=== PATIENT | male | born 1965 | race Caucasian/White ===

== ENCOUNTER 2016-08-25 18:44 | Emergency (ER) | payer OTHER ==
[~2016-08-25] VITALS: Ht 172.7 cm; Wt 81.6 kg
[~2016-08-25 18:44] MED LIST: ZOLOFT50 M1
--- NOTE | 2016-08-25 18:47 | NUR ---
PT PLACED IN BED 6 BY EMS.
[2016-08-25 18:48] VITALS: BP 163/111
--- NOTE | 2016-08-25 18:50 | NUR ---
PATIENT BIBA FOR EVALUATION OF LEFT WRIST PAIN . [facility] [employer] [facility] STATES PT FOUND BY P.D. AND DURING QUESTIONING PT BEGAN TO RESIST ARREST, AND WHEN HANDCUFFS PLACED ON PT, HE THEN C/O LEFT WRIST PAIN . PT ATTEMPTED TO SPIT AT STAFF SEVERAL TIMES UPON ARRIVAL TO ER, PT ARRIVED IN SOFT RESTRAINTS,DENIES N/V/D; SKIN IS PINK/WARM/DRY; AAOX2 PT ABLE TO STATE NAME, BUT VERBALIZES NON-SENSICALLY; LUNGS CLEAR BL; HR EVEN AND REGULAR; PT DENIES ANY FEVER, CP, SOB, OR COUGH AT THIS TIME; PATIENT REFUSES TO RATE PAIN, 0/10 PAIN LEVEL ASSISGNED NO OBSERVABLE S/S OF PAIN NOTED, PT IN NO ACUTE DISTRESS AT THIS TIME; VSS; PATIENT POSITIONED FOR COMFORT; HOB ELEVATED; BEDRAILS UP X2; BED DOWN. ER MD MADE AWARE OF PT STATUS.
--- NOTE | 2016-08-25 19:20 | NUR ---
DR. STALEY EVALUATED THE PT BUT PT IS NOT COOPERTAIVE.
--- NOTE | 2016-08-25 19:20 | NUR ---
Dr. Smiht evaluating patient at bedside.
--- NOTE | 2016-08-25 19:30 | NUR ---
UNABLE TO DO THE X-RAY OF THE LEFT WRIST BECAUSE PT IS VERY COMBATIVE AND UNCOOPERATIVE.
[2016-08-25] MEDS ORDERED: IBUPROFEN 600 MG TAB PO ONE (19:35)
--- NOTE | 2016-08-25 19:41 | NUR ---
PT REFUSED PAIN MEDICATION ORDERED BY ERMD DESPITE EXPLAINING THE RISKS AND BENEFITS OF IT. ERMD NOTIFIED
[2016-08-25] MEDS ORDERED: LORazepam 2 MG/ML VIAL IM ONE (20:00)
[2016-08-25] MEDS ORDERED: HALOPERIDOL IM 5 MG/ML VIAL IM ONE (20:00)
--- NOTE | 2016-08-25 20:10 | NUR ---
INSERT WHITE CATHETER ORDERED BY JANET AND TOLERATED WELL. WILL CONTINUE TO MONITOR.
--- NOTE | 2016-08-25 21:00 | NUR ---
PT IS SLEEPING RIGHT NOW BUT EASILY AROUSABLE. NO S/S OF ANY DISCOMFORT AT THIS TIME. WILL CONTINUE TO MONITOR.
--- NOTE | 2016-08-25 22:35 | NUR ---
Patient discharged with v/s stable BY DR. STALEY. Written and verbal after care instructions given and explained. Patient verbalized understanding BUT PT REFUSED TO SIGNED DISCHARGE INSTRUCTION. Ambulatory with steady gait. All questions addressed prior to discharge. Advised to follow up with PMD.
[2016-08-25 22:36] VITALS: BP 145/91
== END 2016-08-25 22:35 | disposition home or self-care (01) ==
LOC: MED 18:44
DX: F23 Brief psychotic disorder (principal); M25.532 Pain in left wrist; Z88.5 Allergy status to narcotic agent
CPT/HCPCS: 36415; 80053; 80305; 81002; 85025; 96372; 99284; G0482; J1630; J2060